=== PATIENT | male | born 1950 | race African-American/Black ===

== ENCOUNTER 2018-10-27 13:03 | Outpatient (CLI) | payer MEDICARE ==
--- NOTE | 2018-10-27 16:03 | Diagnostic Imaging Report ---
Indication: Cough Technique: 2 views of the chest Comparison: None Findings: There is minimal atelectasis at the left lung base. Lungs and pleural spaces are otherwise clear. The heart size is upper limits of normal. The aorta is tortuous and calcified. The upper mediastinum is unremarkable Impression: No acute process
== END 2018-10-27 15:03 | disposition home or self-care (01) ==
LOC: RAD 13:03
DX: R05 Cough (principal); J98.11 Atelectasis
CPT/HCPCS: 71046